=== PATIENT | female | born 1965 | race Two or more races ===

== ENCOUNTER → 2017-10-11 | Outpatient (CLI) | payer OTHER ==
[~2017-10-11] MED LIST: AMOX1TAB12 PO; Avapro PO; DEMEBORO OTIC DROPS OT; HYDROCHLOROTHIAZIDE PO; IRBESARTAN300 MG; IRBESARTAN300 MG PO; METHIMAZOLE10 MG; METHIMAZOLE10 MG PO; NAPROXEN500 MG PO; PROPRANOLOL HCL40 MG; PROPRANOLOL HCL40 MG PO; Toprol Xl PO
== END | disposition home or self-care (01) ==
LOC: PPHC 09:20
DX: M54.5 Low back pain (principal)

== ENCOUNTER → 2017-11-22 08:52 | Outpatient (CLI) | payer OTHER | END | disposition home or self-care (01) | LOC: LAB 08:52 | DX: I10 Essential (primary) hypertension (principal); D64.89 Other specified anemias; E11.8 Type 2 diabetes mellitus with unspecified complications; E78.00 Pure hypercholesterolemia, unspecified; E55.9 Vitamin D deficiency, unspecified ==

== ENCOUNTER → 2017-11-22 09:01 | Outpatient (CLI) | payer OTHER | END | disposition home or self-care (01) | LOC: RAD 09:01 | DX: M51.36 Other intervertebral disc degeneration, lumbar region (principal) ==

== ENCOUNTER 2017-12-09 10:52 | Outpatient (CLI) | payer OTHER | END 2017-12-09 10:54 | disposition home or self-care (01) | LOC: MAMO-SONO 10:52 | DX: N64.4 Mastodynia (principal); Z12.31 Encounter for screening mammogram for malignant neoplasm of breast ==

== ENCOUNTER 2018-10-03 09:23 | Outpatient (CLI) | payer OTHER | END 2018-10-03 09:42 | disposition home or self-care (01) | LOC: LAB 09:23 | DX: E78.49 Other hyperlipidemia (principal); E11.311 Type 2 diabetes mellitus with unspecified diabetic retinopathy with macular edema; Z00.00 Encounter for general adult medical examination without abnormal findings ==

== ENCOUNTER 2018-10-11 11:03 | Emergency (ER) | payer OTHER ==
[~2018-10-11] VITALS: Ht 180.3 cm; Wt 67.1 kg
[2018-10-11] MEDS ORDERED: VASOTEC10 MG (11:09)
[2018-10-11] MEDS ORDERED: VISTARIL25 MG (11:09)
== END 2018-10-11 11:44 | disposition home or self-care (01) ==
LOC: ER 11:03
DX: R51 Headache (principal); F06.4 Anxiety disorder due to known physiological condition

== ENCOUNTER 2019-10-27 06:49 | Outpatient (CLI) | payer OTHER ==
[~2019-10-27 06:49] MED LIST changes: +VASOTEC10 MG; +VISTARIL25 MG
== END 2019-10-27 06:56 | disposition home or self-care (01) ==
LOC: LAB 06:49
DX: E03.8 Other specified hypothyroidism (principal); Z00.00 Encounter for general adult medical examination without abnormal findings; Z12.11 Encounter for screening for malignant neoplasm of colon; I10 Essential (primary) hypertension

== ENCOUNTER 2019-10-27 07:49 | Outpatient (CLI) | payer OTHER | END 2019-10-27 08:23 | disposition home or self-care (01) | LOC: MAMO-SONO 07:49 | DX: Z12.31 Encounter for screening mammogram for malignant neoplasm of breast (principal); E03.8 Other specified hypothyroidism; E04.1 Nontoxic single thyroid nodule ==

== ENCOUNTER → 2020-03-21 07:00 | Outpatient (CLI) | payer OTHER | END | disposition home or self-care (01) | LOC: PPH VACUNA 07:00 | DX: Z23 Encounter for immunization (principal) ==

== ENCOUNTER → 2020-03-23 | Outpatient (CLI) | payer OTHER | END | disposition home or self-care (01) | LOC: OFIC 805 12:30 | PROVIDERS: ATTEND Otolaryngology | DX: L30.8 Other specified dermatitis (principal); H92.03 Otalgia, bilateral; H61.23 Impacted cerumen, bilateral ==

== ENCOUNTER 2020-04-04 08:42 | Outpatient (CLI) | payer OTHER | END 2020-04-04 08:50 | disposition home or self-care (01) | LOC: SONOGRAMA 08:42 | PROVIDERS: ATTEND Otolaryngology | DX: R22.1 Localized swelling, mass and lump, neck (principal) ==

== ENCOUNTER → 2020-05-03 | Outpatient (CLI) | payer OTHER | END | disposition home or self-care (01) | LOC: OFIC 805 04-25 11:45 | PROVIDERS: ATTEND Otolaryngology | DX: L30.8 Other specified dermatitis (principal); R22.1 Localized swelling, mass and lump, neck ==

== ENCOUNTER → 2020-05-16 06:19 | Outpatient (CLI) | payer OTHER | END | disposition home or self-care (01) | LOC: LAB 06:19 | PROVIDERS: ATTEND General Practice | DX: R05 Cough (principal); Z11.3 Encounter for screening for infections with a predominantly sexual mode of transmission ==

== ENCOUNTER 2020-07-24 07:40 | Outpatient (CLI) | payer OTHER | END 2020-07-24 07:45 | disposition home or self-care (01) | LOC: LAB 07:40 | PROVIDERS: ATTEND Internal Medicine Cardiovascular Disease | DX: I10 Essential (primary) hypertension (principal); E11.9 Type 2 diabetes mellitus without complications; E78.2 Mixed hyperlipidemia; E03.8 Other specified hypothyroidism; Z12.11 Encounter for screening for malignant neoplasm of colon; E55.9 Vitamin D deficiency, unspecified ==

== ENCOUNTER → 2020-08-22 13:34 | Outpatient (CLI) | payer OTHER | END | disposition home or self-care (01) | LOC: NUCLEAR 08-21 08:00 | PROVIDERS: ATTEND Internal Medicine Cardiovascular Disease | DX: M81.0 Age-related osteoporosis without current pathological fracture (principal) ==

== ENCOUNTER 2021-04-03 08:00 | Outpatient (CLI) | payer OTHER ==
[~2021-04-03 08:00] MED LIST changes: +NABUMETONE750 MG PO
[2021-04-20] MEDS ORDERED: NABUMETONE750 MG PO (11:03)
== END 2021-04-03 08:30 | disposition home or self-care (01) ==
LOC: PPH VACUNA 08:00
PROVIDERS: ATTEND Emergency Medicine Pediatric Emergency Medicine
DX: Z23 Encounter for immunization (principal)

== ENCOUNTER 2021-06-05 08:00 | Outpatient (CLI) | payer OTHER | END 2021-06-05 08:30 | disposition home or self-care (01) | LOC: PPH VACUNA 08:00 | PROVIDERS: ATTEND Emergency Medicine Pediatric Emergency Medicine | DX: Z23 Encounter for immunization (principal) ==

== ENCOUNTER 2021-06-27 13:14 | Outpatient (CLI) | payer OTHER | END 2021-06-27 13:23 | disposition home or self-care (01) | LOC: MAMO-SONO 13:14 | DX: N63.21 Unspecified lump in the left breast, upper outer quadrant (principal); N63.12 Unspecified lump in the right breast, upper inner quadrant ==

== ENCOUNTER 2022-01-28 06:39 | Outpatient (CLI) | payer OTHER | END 2022-01-28 06:40 | disposition home or self-care (01) | LOC: LAB 06:39 | PROVIDERS: ATTEND Obstetrics & Gynecology | DX: N39.0 Urinary tract infection, site not specified (principal); R22.1 Localized swelling, mass and lump, neck; D50.9 Iron deficiency anemia, unspecified; E03.9 Hypothyroidism, unspecified ==

== ENCOUNTER 2022-02-07 10:35 | Outpatient (CLI) | payer OTHER | END 2022-02-07 10:36 | disposition home or self-care (01) | LOC: LAB 10:35 | PROVIDERS: ATTEND Internal Medicine Cardiovascular Disease | DX: E11.9 Type 2 diabetes mellitus without complications (principal) ==

== ENCOUNTER 2022-02-12 07:37 | Outpatient (CLI) | payer OTHER | END 2022-02-12 07:41 | disposition home or self-care (01) | LOC: SONOGRAMA 07:37 | PROVIDERS: ATTEND Internal Medicine Cardiovascular Disease | DX: E03.9 Hypothyroidism, unspecified (principal) ==

== ENCOUNTER 2022-03-13 14:00 | Outpatient (CLI) | payer OTHER | END 2022-03-13 14:05 | disposition home or self-care (01) | LOC: PPH VACUNA 14:00 | PROVIDERS: ATTEND Emergency Medicine Pediatric Emergency Medicine | DX: Z23 Encounter for immunization (principal) ==